=== PATIENT | male | born 1960 | race Caucasian/White ===

== ENCOUNTER 2022-11-22 10:50 | Outpatient (OUT) | payer MEDICARE, SELFPAY ==
--- NOTE | 2022-11-22 11:02 | ECG_ITS ---
[facility] Test Date: 2022-11-22 Pat Name: CHRISTOPH WYATT Department: Room: - Gender: Male [employer]: : 1960 Requested By: [id number] Order Number: [id number] Reading MD: SHERI PERKINS Measurements Intervals [place] Rate: 58 P: 12 MD: 209 QRS: 8 QRSD: 102 T: 25 QT: 433 QTc: 428 Interpretive Statements SINUS BRADYCARDIA No previous ECG available for comparison Electronically Signed On 11-23-2022 7:22:44 EDT by SHERI PERKINS
--- NOTE | 2022-11-22 11:02 | XR_ITS ---
[address] [address] Patient Name: CHRISTOPH WYATT MRN: [id number] date: 1960 Sex: M Assigned Patient Location: [facility] Current Patient Location: [facility] Accession/Order Number: [id number] Exam Date: 11/22/2022 11:42 Report Date: 11/22/2022 12:01 At the request of: SHERRY HAYES Procedure: XR chest 2V EXAM: XR chest 2V HISTORY: PRE OP EXAM COMPARISON: None. TECHNIQUE: PA and lateral views of the chest. FINDINGS: The cardiomediastinal silhouette is normal. No focal consolidation is identified. There is no pneumothorax. No pleural effusion is noted. The osseous structures are intact. XR/XR chest 2V IMPRESSION: No acute cardiopulmonary process. Electronically authenticated by: JARROD WILKERSON Date: 11/22/2022 12:01
[2022-11-22 12:11] LABS: Anion Gap 12.2; BUN Creatinine Ratio 15.1; Calcium 8.7 mg/dL (8.5-10.1); Carbon Dioxide 26.9 mmol/L (21.0-32.0); Chloride 105 mmol/L (98-107); Estimated GFR (African America >60 (>=60); Estimated GFR (Non-African Ame >60 (>=60); Glucose 91 mg/dL (74-106); Potassium 4.1 mmol/L (3.5-5.1); Sodium 140 mmol/L (136-145)
[2022-11-22 12:26] LABS: INR 0.97; Partial Thromboplastin Time 27.1 sec (22.3-36.2); Prothrombin Time 10.3 sec (9.0-11.6)
== END 2022-11-22 10:51 | disposition home or self-care (01) ==
LOC: PST 10:55
PROVIDERS: PCP Family Medicine; Visit Provider Urology
DX: Z01.810 Encounter for preprocedural cardiovascular examination (principal); Z01.812 Encounter for preprocedural laboratory examination; N20.1 Calculus of ureter; I10 Essential (primary) hypertension
CPT/HCPCS: 36415; 71046; 80048; 85610; 85730; 93005